=== PATIENT | female | born 1985 | race Caucasian/White ===

== ENCOUNTER 2020-09-02 20:14 | Emergency (ER) | payer OTHER, SELFPAY ==
[2020-09-02 20:17] VITALS: BP 132/77; PULSE 89; RESP 18; TEMP 36.4; O2SAT 100; BMI 33.6
[2020-09-02 21:16] VITALS: BP 117/57; PULSE 78; RESP 16; TEMP 36.9; O2SAT 98
[2020-09-02] MEDS: predniSONE 20 MG TABLET 60 MG PO (21:28)
[2020-09-02] MEDS: diphenhydrAMINE HCL 25 MG TABLET 50 MG PO (21:29)
[2020-09-02 22:05] LABS: MANUAL DIFF FLAG NO
[2020-09-02] MEDS: 0.9 % Sodium Chloride 1,000 ML 999 ML IVCONT (22:13)
[2020-09-02] MEDS: HYDROcodone Bit/Acetam 5/325 TABLET 1 TAB PO (22:13)
[2020-09-02 22:17] LABS: Basophils Percent Auto 0.1 % (0-2); Eosinophils Absolute Auto 0.3 X10*3/uL (0.0-0.4); Eosinophils Percent Auto 3.6 % (0-4); Hematocrit 33.7 % (37-47); Hemoglobin 10.7 g/dl (12.0-16.0); Imm Gran Abs Auto 0.03 X10*3/uL (0.00-0.03); Imm Gran Pct Auto 0.4 % (0.0-0.4); Lymphocytes Absolute Auto 1.9 X10*3/uL (1.2-4.9); Lymphocytes Percent Auto 26.5 % (20-40); Mean Corpuscular HGB Conc 31.8 g/dl (31.0-35.0); Mean Corpuscular Hemoglobin 25.4 pg (27.0-33.0); Mean Corpuscular Volume 79.9 fL (80-98); Monocytes Absolute Auto 0.5 X10*3/uL (0.1-1.2); Monocytes Percent Auto 6.8 % (2-11); Neutrophils Absolute Auto 4.5 X10*3/uL (2.0-8.3); Neutrophils Percent Auto 62.6 % (45-73); Platelet Count 267 X10*3/uL (160-400); Red Blood Count 4.22 X10*6/uL (4.20-5.50); Red Cell Distribution Width 15.5 % (11.0-16.0); White Blood Count 7.2 X10*3/uL (4.8-10.8)
[2020-09-02 22:18] LABS: Prothrombin Time 12.3 SEC (10.8-13.0)
[2020-09-02 22:21] LABS: Partial Thromboplastin Time 35.9 SEC (24.1-38.0)
--- NOTE | 2020-09-02 22:22 | ED.SKABFB ---
HPI - Skin/Abscess/Foreign Bdy General Chief complaint: Skin/Abscess/Foreign Body Stated complaint: RASH Time Seen by Provider: 09/02/20 21:24 Source: patient Mode of arrival: ambulatory Limitations: no limitations History of Present Illness HPI narrative: 35 y/o healthy female, history of gastric bypass in the past who presents with acute of red painful, itchy rash that started in her feet at 1:30 pm and spread up her legs this evening. It is red, flat and circular with varying sizes from punctate to a few inches in diameter. It is worst in her lower legs posteriorly. She states her calves are cramping. She denies a history of this in the past. She is on no medications, no new detergents, lotions, soaps or perfumes. No new foods except she ate shrimp last night at 830 pm at a restaurant. She denies SOB, wheezing, facial swelling but reports some throat itching and upper arm itching but no lesions are present. MD complaint: rash Onset (ago): hour(s) (8) Tetanus up to date: unsure Location: LLE, RLE, L foot and R foot Severity: severe Quality: burning, aching, constant and pruritic Pain Consistency: constant Relieving factors: none Exacerbating factors: palpation and movement Context: none Associated symptoms: denies other symptoms Treatments prior to arrival: none Related Data Previous Rx's Medication Instructions Recorded prednisone 10 mg PO PER PKG DIR #48 ea 09/02/20 hydrocodone-acetaminophen 1 tab PO Q6H PRN #6 tab 09/03/20 Allergies Allergy/AdvReac Type Severity Reaction Status Date / Time banana [BANANA] Allergy Intermediate ITCHY Verified 09/02/20 20:17 THROAT/SKIN IRRITATION Banana Allergy Unknown Itching Uncoded 09/02/20 20:17 Novocain Allergy Unknown Unknown Uncoded 09/02/20 20:17 Sun - gets an itchy rash Allergy Unknown itching Uncoded 05/26/18 00:00 Review of Systems Review of Systems: Constitutional: No Fever, No Chills ENT/Mouth: No sore throat, No Rhinorrhea, No Swallowing Difficulty Eyes: No Eye Pain, No Swelling, No Redness Cardiovascular: No Chest Pain, No SOB, No Orthopnea, No Edema Respiratory: No Cough, No Sputum, No Wheezing, No dyspnea Gastrointestinal: No Nausea, No Vomiting, No Diarrhea, No abdominal Pain Genitourinary: No Dysuria, No Urinary Frequency, No Hematuria Musculoskeletal: No joint pain, + Myalgias Skin: + Skin Lesions, + rash Neuro: No Weakness, No Numbness, No Dizziness, No Headache Psych: No Anxiety/Panic, No Depression Heme/Lymph: No Bruising, No Lymphadenopathy PMFSH Past Medical History Attestation statement: The following information was validated with the patient. Medical History Asthma Migraine Surgical History (Updated 09/02/20 @ 20:19 by Saira High) H/O gastric bypass Social History Social History Advance Directives: No Physical Exam Vital Signs: Vital Signs: Last Vital Signs Temp 98.7 F 09/02/20 23:40 Pulse 63 09/02/20 23:40 Resp 16 09/02/20 23:40 BP 101/52 L 09/02/20 23:40 Pulse Ox 98 09/02/20 23:40 Body Mass Index 33.6 Appearance: Alert. Oriented X3. No acute distress. HEENT: normal inspection CVS: Normal heart rate and rhythm. Pulses normal. Respiratory: No respiratory distress. Skin: Skin warm and dry. Normal skin color. Normal skin turgor. No rashes. Extremities: bilateral LE with flat, ertythematous, non-blanching circular rash of lower legs, worse posteriorly, small lesions noted on anterior thighs and right lateral hip Neuro: Oriented X 3. No motor deficit. No sensory deficit. Course Course Course Narrative: 35 y/o female presenting with painful, pruritic, ascending rash of LE of unclear etiology. Non-blanching rash raises concern for possible vasculitis. Will check basic blood work. Given prednisone and benadryl now for itching. Will monitor closely. Reevaluation(s) Reevaluation #1: Labs are unremarkable with normal platelets and only mild microcytic anemia. CRP normal ESR mildly elevated 28. Her symptoms are slightly improved after medications, rash remains unchanged, no worsening. Etiology of her rash is unclear. She has a PCP who is she has an appointment with next week. She agrees to call her tomorrow to see if she can be seen earlier. She has no worsening of her symptoms and no respiratory involvement. She is stable for discharge at this time with plans for a prednisone taper and pain control. Patient agrees with plan. MDM - Skin/Abscess/Foreign Bdy Lab Data Result diagrams: 09/02/20 21:58 09/02/20 21:58 Labs: Lab Results 09/02/20 09/02/20 09/02/20 Range/Units 21:58 21:58 21:58 WBC 7.2 (4.8-10.8) X10*3/uL RBC 4.22 (4.20-5.50) X10*6/uL Hgb 10.7 L (12.0-16.0) g/dl Hct 33.7 L (37-47) % MCV 79.9 L (80-98) fL MCH 25.4 L (27.0-33.0) pg MCHC 31.8 (31.0-35.0) g/dl RDW 15.5 (11.0-16.0) % Plt Count 267 (160-400) X10*3/uL MPV 11.0 (9.4-12.3) fL Immature Gran % (Auto) 0.4 (0.0-0.4) % Neut % (Auto) 62.6 (45-73) % Lymph % (Auto) 26.5 (20-40) % Ramsey % (Auto) 6.8 (2-11) % Eos % (Auto) 3.6 (0-4) % Baso % (Auto) 0.1 (0-2) % Lymph # (Auto) 1.9 (1.2-4.9) X10*3/uL Ramsey # (Auto) 0.5 (0.1-1.2) X10*3/uL Eos # (Auto) 0.3 (0.0-0.4) X10*3/uL Baso # (Auto) 0.0 (0.0-0.2) X10*3/uL Abs Immat Gran (auto) 0.03 (0.00-0.03) X10*3/uL Absolute Neuts (auto) 4.5 (2.0-8.3) X10*3/uL Absolute Nucleated RBC 0.000 (0.0-0.012) X10*3/uL Nucleated RBC % (auto) 0.0 (0.0-0.2) /100WBC ESR 28 H (0-20) MM/HR PT 12.3 (10.8-13.0) SEC INR 1.0 (0.9-1.1) APTT 35.9 (24.1-38.0) SEC Sodium (135-145) mmol/L Potassium (3.3-5.1) mmol/L Chloride (96-108) mmol/L Carbon Dioxide (22-29) mmol/L Anion Gap (12-20) BUN (9-16) mg/dL Creatinine (0.5-1.4) mg/dL Estim Creat Clear Calc Estimated GFR Random Glucose (60-115) mg/dL Calcium (8.4-10.2) mg/dL Magnesium (1.6-2.6) mg/dL Total Bilirubin (0.0-1.0) mg/dL Direct Bilirubin (0.0-0.5) mg/dL AST (5-31) U/L ALT (0-31) U/L Alkaline Phosphatase (39-117) U/L Total Creatine Kinase (26-140) U/L C-Reactive Protein (< or = 0.50) mg/dL Total Protein (6.5-8.0) g/dL Albumin (3.5-5.0) g/dL 09/02/20 Range/Units 21:58 WBC (4.8-10.8) X10*3/uL RBC (4.20-5.50) X10*6/uL Hgb (12.0-16.0) g/dl Hct (37-47) % MCV (80-98) fL MCH (27.0-33.0) pg MCHC (31.0-35.0) g/dl RDW (11.0-16.0) % Plt Count (160-400) X10*3/uL MPV (9.4-12.3) fL Immature Gran % (Auto) (0.0-0.4) % Neut % (Auto) (45-73) % Lymph % (Auto) (20-40) % Ramsey % (Auto) (2-11) % Eos % (Auto) (0-4) % Baso % (Auto) (0-2) % Lymph # (Auto) (1.2-4.9) X10*3/uL Ramsey # (Auto) (0.1-1.2) X10*3/uL Eos # (Auto) (0.0-0.4) X10*3/uL Baso # (Auto) (0.0-0.2) X10*3/uL Abs Immat Gran (auto) (0.00-0.03) X10*3/uL Absolute Neuts (auto) (2.0-8.3) X10*3/uL Absolute Nucleated RBC (0.0-0.012) X10*3/uL Nucleated RBC % (auto) (0.0-0.2) /100WBC ESR (0-20) MM/HR PT (10.8-13.0) SEC INR (0.9-1.1) APTT (24.1-38.0) SEC Sodium 140 (135-145) mmol/L Potassium 4.2 (3.3-5.1) mmol/L Chloride 109 H (96-108) mmol/L Carbon Dioxide 21 L (22-29) mmol/L Anion Gap 14 (12-20) BUN 20 H (9-16) mg/dL Creatinine 0.68 (0.5-1.4) mg/dL Estim Creat Clear Calc 137.1 Estimated GFR > 60 Random Glucose 107 (60-115) mg/dL Calcium 9.0 (8.4-10.2) mg/dL Magnesium 2.0 (1.6-2.6) mg/dL Total Bilirubin 0.3 (0.0-1.0) mg/dL Direct Bilirubin < 0.2 (0.0-0.5) mg/dL AST 22 (5-31) U/L ALT 12 (0-31) U/L Alkaline Phosphatase 91 (39-117) U/L Total Creatine Kinase 97 (26-140) U/L C-Reactive Protein 0.16 (< or = 0.50) mg/dL Total Protein 7.3 (6.5-8.0) g/dL Albumin 4.0 (3.5-5.0) g/dL Critical Care Time Critical Care Time Critical Care Time: No Discharge Plan Discharge Clinical Impression: Rash Patient Disposition: Home, Self-Care Instructions: Acute Rash (ED) Additional Instructions: The cause of your rash is not clear. Your blood workup today showed only some mild anemia. Take the prescribed steroids for the rash and follow up with your doctor tomorrow. Take Benadryl 25-50 mg of Benadryl every 6 hours as needed for itching. If you have worsening symptoms come back to the ER for further evaluation. Prescriptions: New prednisone 10 mg tablets,dose pack 10 mg PO PER PKG DIR Qty: 48 RF: 0 hydrocodone-acetaminophen 5-325 mg tablet 1 tab PO Q6H PRN (Reason: pain) Qty: 6 RF: 0 Discharge Date/Time: 09/03/20 00:26
[2020-09-02 22:35] LABS: Alanine Aminotransferase 12 U/L (0-31); Alkaline Phosphatase 91 U/L (39-117); Anion Gap 14 (12-20); Aspartate Amino Transferase 22 U/L (5-31); Bilirubin Direct < 0.2 mg/dL (0.0-0.5); Bilirubin Total 0.3 mg/dL (0.0-1.0); Blood Urea Nitrogen 20 mg/dL (9-16); C Reactive Protein 0.16 mg/dL (< or = 0.50); Carbon Dioxide 21 mmol/L (22-29); Chloride 109 mmol/L (96-108); Creatinine Clr Calc Pharmacy 137.1; Estimated Glomerular Filt Rate > 60; Glucose Random 107 mg/dL (60-115); Potassium 4.2 mmol/L (3.3-5.1); Sodium 140 mmol/L (135-145); Total Protein 7.3 g/dL (6.5-8.0)
[2020-09-02 23:14] LABS: Erythrocyte Sedimentation Rate 28 MM/HR (0-20)
[2020-09-02 23:40] VITALS: BP 101/52; PULSE 63; RESP 16; TEMP 37.1; O2SAT 98
== END 2020-09-03 00:26 | disposition home or self-care (01) ==
PROVIDERS: Physician Assistant; Emergency Provider Emergency Medicine; PCP Internal Medicine
DX: R21 Rash and other nonspecific skin eruption (principal); D64.9 Anemia, unspecified
CPT/HCPCS: 36415; 80048; 80076; 82550; 83735; 85025; 85610; 85652; 85730; 86140; 96360; 99284; Q0163

== ENCOUNTER 2021-06-29 13:11 | Outpatient (REF) | payer OTHER, SELFPAY ==
[2021-06-29 15:12] LABS: Binax Internal Control QC Valid; Binax Now Covid-19 Ag Negative (Negative)
== END 2021-06-29 13:12 | disposition home or self-care (01) ==
LOC: HO.LAB 13:11
PROVIDERS: Visit Provider Internal Medicine
DX: Z20.822 Contact with and (suspected) exposure to COVID-19 (principal)
CPT/HCPCS: 36415; C9803

== ENCOUNTER 2022-08-16 10:21 | Outpatient (REF) | payer OTHER, SELFPAY ==
[2022-08-16 11:16] LABS: COVID-19 Test Negative (Negative); IDNOW Serial# 6674DD1D
== END 2022-08-16 10:22 | disposition home or self-care (01) ==
LOC: HO.LAB 10:21
PROVIDERS: Visit Provider Internal Medicine
DX: Z20.822 Contact with and (suspected) exposure to COVID-19 (principal)
CPT/HCPCS: 87635; C9803

== ENCOUNTER 2023-06-15 12:03 | Outpatient (REF) | payer OTHER, SELFPAY ==
[2023-06-15 13:57] LABS: Basophils Percent Auto 0.5 % (0-2); Eosinophils Absolute Auto 0.3 X10*3/uL (0.0-0.4); Eosinophils Percent Auto 3.5 % (0-4); Hematocrit 38.1 % (37.0-47.0); Hemoglobin 11.4 g/dl (12.0-16.0); Imm Gran Abs Auto 0.04 X10*3/uL (0.00-0.03); Imm Gran Pct Auto 0.5 % (0.0-0.4); Lymphocytes Absolute Auto 1.8 X10*3/uL (1.2-4.9); Lymphocytes Percent Auto 22.2 % (20-40); MANUAL DIFF FLAG SCAN; Mean Corpuscular HGB Conc 29.9 g/dl (31.0-35.0); Mean Corpuscular Hemoglobin 24.1 pg (27.0-33.0); Mean Corpuscular Volume 80.5 fL (80.0-98.0); Monocytes Absolute Auto 0.4 X10*3/uL (0.1-1.2); Monocytes Percent Auto 5.4 % (2-11); Neutrophils Absolute Auto 5.5 x10*3/uL (2.0-8.3); Neutrophils Percent Auto 67.9 % (45-73); PLT CLUMP 1; Red Blood Count 4.73 X10*6/uL (4.20-5.50); SCAN SMEAR FLAG 1
[2023-06-15 13:58] LABS: White Blood Count 8.9 X10*3/uL (4.8-10.8)
[2023-06-15 14:19] LABS: Estimated Average Glucose 103 mg/dL; Hemoglobin A1c % 5.2 % (<6.0)
[2023-06-15 14:31] LABS: Platelet Count 198 X10*3/uL (160-400); SLIDE REVIEW VERIFIED
[2023-06-15 17:18] LABS: Alanine Aminotransferase 12 U/L (0-31); Albumin Level 4.2 g/dL (3.5-5.0); Alkaline Phosphatase 93 U/L (39-117); Anion Gap 12 (12-20); Aspartate Amino Transferase 17 U/L (5-31); Bilirubin Total 0.3 mg/dL (0.0-1.0); Blood Urea Nitrogen 13 mg/dL (9-16); Calcium 9.6 mg/dL (8.4-10.2); Carbon Dioxide 23 mmol/L (22-29); Chloride 107 mmol/L (96-108); Estimated Glomerular Filt Rate > 60; Glucose Random 89 mg/dL (60-115); Potassium 4.2 mmol/L (3.3-5.1); Sodium 138 mmol/L (135-145); TSH reflex Free T4 1.25 uIU/mL (0.32-4.0); Total Protein 8.1 g/dL (6.5-8.0)
[2023-06-16 07:47] LABS: Follicle Stimulating Hormone 7.5 mIU/mL; Prolactin 5.5 ng/mL
== END 2023-06-15 12:04 | disposition home or self-care (01) ==
LOC: HO.HHCL 12:03
PROVIDERS: Visit Provider General Practice
DX: N92.6 Irregular menstruation, unspecified (principal); E66.9 Obesity, unspecified; N94.6 Dysmenorrhea, unspecified
CPT/HCPCS: 36415; 80053; 83001; 83002; 83036; 84146; 84443; 85025

== ENCOUNTER 2023-06-15 12:27 | Outpatient (REF) | payer OTHER, SELFPAY | END 2023-06-15 12:28 | disposition home or self-care (01) | LOC: HO.LAB 12:27 | PROVIDERS: PCP General Practice; Visit Provider General Practice | DX: N92.6 Irregular menstruation, unspecified (principal); E66.9 Obesity, unspecified; N94.6 Dysmenorrhea, unspecified | CPT/HCPCS: 36415; 83498 ==

== ENCOUNTER 2024-03-20 16:16 | Outpatient (REF) | payer OTHER, SELFPAY ==
[2024-03-23 00:43] LABS: HPV mRNA E6/E7 Not Detected (Not Detected)
== END 2024-03-20 16:17 | disposition home or self-care (01) ==
LOC: HO.HHCLNP 16:16
PROVIDERS: Visit Provider Advanced Practice Midwife
DX: Z98.890 Other specified postprocedural states (principal); Z12.4 Encounter for screening for malignant neoplasm of cervix
CPT/HCPCS: 36415; 87624; 88175